=== PATIENT | female | born 1945 ===

== ENCOUNTER 2023-04-12 06:39 | Day surgery (SDC) | payer OTHER ==
[~2023-04-12 06:39] MED LIST: CENTRUM ADULT120 MCG PO; EMBREL PO; FENOFIBRATE160 MG PO; MOBIC15 MG PO; NABUMETONE500 MG PO; NORVASC5 MG PO; OMEGA 3 1,0001 EACH PO; ULTRAM50 MG PO; VITAMIN D3 PO
[2023-04-12] MEDS ORDERED: PERCOCET 5-3251 EACH PO (10:48)
== END 2023-04-12 14:40 | disposition home or self-care (01) ==
LOC: CIR.AMB 06:39
PROVIDERS: ATTEND Surgery
DX: D35.1 Benign neoplasm of parathyroid gland (principal); E21.0 Primary hyperparathyroidism; Z20.822 Contact with and (suspected) exposure to COVID-19; Z88.0 Allergy status to penicillin; Z88.6 Allergy status to analgesic agent